=== PATIENT | female | born 1995 | race Hispanic/Latino ===

== ENCOUNTER 2024-03-23 17:59 | Emergency (ER) | payer OTHER, SELFPAY ==
[2024-03-23 18:05] VITALS: BP 140/97
[2024-03-23 20:15] VITALS: BP 138/78
--- NOTE | 2024-03-23 23:08 | ED.GENMED ---
History of Present Illness
General
Chief Complaint: DVT/Possible Blood Clot
Source: patient
Exam Limitations: none
Time Seen by Provider: 03/23/24 19:34
Nursing documentation reviewed up to this point in time: agreed with
Travel History
Have you had any contact with someone who has COVID-19?: No
Do you have any symptoms of coronavirus? Fever > 100 degrees, chills, cough, shortness of breath, sore throat, loss of taste or smell, muscle aches, or headache?: No
History of Present Illness
History of Present Illness:
Patient to ED for eval of bruise to her right lateral thigh. Denies any trauma. Sent by PCP o ED for US to r/o DVT. No prior history of DVT.
Past History
Past History
ED Past Medical History: None
ED Past Surgical History: Orthopedic and Tonsilectomy
Patient has exhibited threatening behavior?: No
Social History
Tobacco: Non-smoker
Alcohol: None
Drug: None
Personal: Single
Living: with family
Employment: Employed
Family History
Family History: Other (Noncontributory)
Review of Systems
Review of Systems
Allergies reviewed?: Yes
All Other Systems: ROS reviewed and negative except as documented in HPI and ROS
Constitutional: Reports no symptoms
Respiratory: Reports no symptoms
Cardiac: Reports no symptoms
Musculoskeletal: Reports no symptoms
Skin: Reports other (bruise to right lat thigh)
Neurological: Reports no symptoms
Psychiatric: Reports no symptoms
Phy Exam
General Physical Exam
General Presentation: well appearing and no apparent distress
General age: appears stated age
General Skin: warm and dry
General Habitus: normal
General Mental: alert
Musculoskeletal Exam
Musculoskeletal Exam: full ROM, no edema and neuro vasc intact
Skin Exam
Skin Exam: normal color, warm/dry, no rash and other (3cm round bruise noted to right distal lateral thigh.)
Psychiatric Exam
Psychiatric Exam: normal mood/affect
Course
Orders/Labs/Results
Orders:
Orders
03/23/24 18:10
US Legs, Right [US Periph Venous LOWER Ext RT] Urgent
Comment:
Reason For Exam: pain lump
Vital Signs
Initial and Last Documented VS:
Initial Vital Signs
Temp Pulse Resp BP Pulse Ox
98.5 F 90 16 140/97 99
03/23/24 18:05 03/23/24 18:05 03/23/24 18:05 03/23/24 18:05 03/23/24 18:05
Last Documented Vital Signs
Temp Pulse Resp BP Pulse Ox
97.8 F 78 18 138/78 98
03/23/24 20:15 03/23/24 20:15 03/23/24 20:15 03/23/24 20:15 03/23/24 20:15
*Radiology
Radiology exam reviewed: radiology read reviewed
*Pulse Oximetry
Patient hypoxic: no
*Critical Care Note
Total Time (30-74mins, 75-104mins- exclusive of procedures): Not Applicable
ED Attending Note
-
Portions of this chart may have been created with voice recognition software.� Occasional wrong word or��sound alike� substitutions may have occurred due to the inherent limitations of voice recognition software.
Discharge Plan
Departure
Patient Disposition: Home (Routine Discharge)
Date of Disposition: 03/23/24
Time of Disposition: 20:10
Patient with high blood pressure during this ER visit?: No
Condition: Good
Covid-19: Not Applicable
Discharge Problem:
Hematoma of thigh
Instructions: Taking care of bruises
Prescriptions:
No Action
No Current Medications
0
Referrals:
Yousif Russo MD [Family Provider] - Next open appointment
Interventions
Interventions:
*Risk Screen - Suicide Last Done: 03/23/24 18:05
*General Assessment Last Done: 03/23/24 19:54
*Neglect/Abuse Screening Last Done: 03/23/24 18:05
ED- Fall Risk Assessment Last Done: 03/23/24 19:54
*ED COVID-19 Vaccine History Last Done: 03/23/24 18:05
*Nursing Disposition Last Done: 03/23/24 20:15
ED- Cardiac Assessment Last Done: 03/23/24 19:54
ED- Pulmonary Assessment Last Done: 03/23/24 19:54
ED-Peripheral Vascular Assessment Last Done: 03/23/24 19:54
ED-Skin Assessment Last Done: 03/23/24 19:54
Discharge Date and Time
Discharge Date/Time: 03/23/24 20:16
Print Language: ALBANIAN
== END 2024-03-23 20:16 | disposition home or self-care (01) ==
LOC: EMR 17:59
PROVIDERS: EMERGENCY PHYSICIAN Emergency Medicine; FAMILY PHYSICIAN Family Medicine
DX: S70.11XA Contusion of right thigh, initial encounter (principal); X58.XXXA Exposure to other specified factors, initial encounter
CPT/HCPCS: 99284; 93971